=== PATIENT | male | born 1970 | race African-American/Black ===

== ENCOUNTER 2016-10-20 14:36 | Emergency (ER) | payer SELFPAY ==
[~2016-10-20] VITALS: Ht 180.3 cm; Wt 104.3 kg
[2016-10-20 15:02] VITALS: BP 176/100
--- NOTE | 2016-10-20 15:04 | PHYS DOC ---
Past Medical History Past Medical History: No Pertinent History Past Surgical History: No Surgical History Alcohol Use: None Drug Use: None Adult General Chief Complaint Chief Complaint: ANKLE PROBLEM HPI HPI Patient is a 46 year old male who presents with pain to his right ankle. He states that he might have twisted it on a step. He works at [employer] in the [employer] and states that he has to climb up 4 flights of stairs frequently throughout the day. He states that rest does improve the pain. Review of Systems Review of Systems Constitutional: Denies fever or chills [] Respiratory: Denies cough or shortness of breath [] Cardiovascular: No additional information not addressed in HPI [] Musculoskeletal: See history of present illness Integument: Denies rash or skin lesions [] Current Medications Current Medications Current Medications Medications (Trade) Dose Ordered Sig/Bernardino Start Time Stop Time Status Last Admin Dose Admin Acetaminophen/ Hydrocodone Bitart (Lortab 5/325) 2 tab 1X ONCE 10/20/16 15:30 10/20/16 15:31 DC 10/20/16 15:13 2 TAB Allergies Allergies Allergies Coded Allergies Type Severity Reaction Last Updated Verified No Known Drug Allergies 07/29/13 No Physical Exam Physical Exam Constitutional: Well developed, well nourished, no acute distress, non-toxic appearance. [] Cardiovascular:Heart rate regular rhythm, no murmur [] Lungs & Thorax: Bilateral breath sounds clear to auscultation [] Skin: Warm, dry, no erythema, no rash. [] Back: No tenderness, no CVA tenderness. [] Extremities: Tenderness to right medial malleolus with palpation, no ecchymosis or swelling noted Neurologic: Alert and oriented X 3, normal motor function, normal sensory function, no focal deficits noted. [] Psychologic: Affect normal, judgement normal, mood normal. [] Current Patient Data Vital Signs Vital Signs Date Time Temp Pulse Resp B/P (MAP) Pulse Ox O2 Delivery O2 Flow Rate FiO2 10/20/16 15:02 99.1 90 18 98 Room Air 99.1 EKG EKG [] Radiology/Procedures Radiology/Procedures [] PATIENT: MIKAYLA ALCOCER ACCOUNT: [id number] : 1970 LOCATION: ER AGE: 46 SEX: M EXAM STATUS: REG ER ORD. PHYSICIAN: BRISEYDA MEJIA APRN REASON: twisted on stairs PROCEDURE: ANKLE RIGHT 3V Indication: Right ankle pain for 5 days. Twisted ankle on stairs at work. Technique: 3 views of the right ankle are submitted for review. No comparison is available. Findings: There is an ossific density noted near the tip of the medial malleolus. There is no overlying soft tissue swelling. This may be sequela of remote fracture or degenerative. Please correlate with any symptoms medially. Otherwise, there is no fracture or dislocation. There is no soft tissue swelling. Impression: Small ossific fragment noted near the tip of the medial malleolus may be degenerative or sequela of old trauma. There is no overlying soft tissue swelling to suggest this is acute although correlation with any symptoms at this site would be of benefit. DICTATED and SIGNED BY: DANIELLE PETERSON MD DATE: 10/20/16 1536 Course & Med Decision Making Course & Med Decision Making Pertinent Labs and Imaging studies reviewed. (See chart for details) [] 1. Ankle pain The patient is being given Naprosyn as an anti-inflammatory. He is also been instructed to use ice several times a day for pain. He was given a work note to excuse him for work. He is to follow-up with his PCP in one week or return to the ED if worsening. Dragon Disclaimer Dragon Disclaimer This electronic medical record was generated, in whole or in part, using a voice recognition dictation system. Departure Departure Impression: Primary Impression: Ankle pain Disposition: 01 HOME, SELF-CARE Referrals: NO PCP (PCP) Scripts Naproxen (NAPROSYN) 500 Mg Tablet 1 TAB PO BID, #60 TAB 1 Refill Prov: BRISEYDA MEJIA APRN 10/20/16 BRISEYDA MEJIA APRN Oct 20, 2016 15:04
[2016-10-20] MEDS ORDERED: HYDROcodone/APAP 5/325MG 1 TAB TABLET PO ONE (15:30)
--- NOTE | 2016-10-20 15:39 | RAD ---
Indication: Right ankle pain for 5 days. Twisted ankle on stairs at work. Technique: 3 views of the right ankle are submitted for review. No comparison is available. Findings: There is an ossific density noted near the tip of the medial malleolus. There is no overlying soft tissue swelling. This may be sequela of remote fracture or degenerative. Please correlate with any symptoms medially. Otherwise, there is no fracture or dislocation. There is no soft tissue swelling. Impression: Small ossific fragment noted near the tip of the medial malleolus may be degenerative or sequela of old trauma. There is no overlying soft tissue swelling to suggest this is acute although correlation with any symptoms at this site would be of benefit.
[2016-10-20] MEDS ORDERED: NAPR500T PO (16:10)
== END 2016-10-20 16:18 | disposition home or self-care (01) ==
LOC: ER 14:36
DX: M25.571 Pain in right ankle and joints of right foot (principal); X50.1XXA Overexertion from prolonged static or awkward postures, initial encounter; Y93.89 Activity, other specified; Y92.89 Other specified places as the place of occurrence of the external cause; Y99.8 Other external cause status
CPT/HCPCS: 73610; 99284